=== PATIENT | female | born 1950 | race Caucasian/White ===

== ENCOUNTER 2016-09-03 10:17 | Day surgery (SDC) | payer MEDICARE, OTHER ==
[~2016-09-03 10:17] MED LIST: PHENYLEPHRINE 2.5% OPHTH 2 ML DROPS ONE
[2016-09-03] MEDS ORDERED: KETOROLAC 0.45% OPHTH DROPS OPTH ONE (10:25)
[2016-09-03] MEDS ORDERED: PHENYLEPHRINE 2.5% OPHTH 2 ML DROPS OPTH ONE (10:25)
[2016-09-03] MEDS ORDERED: PROPARACAINE 0.5% OPHTH DROPS 15 ML OPTH ONE ×2 (10:25→11:22)
[2016-09-03] MEDS ORDERED: CYCLOPENTOLATE 1% OPHTH DROPS 2 ML OPTH ONE (10:25)
[2016-09-03] MEDS ORDERED: LACTATED RINGERS 1,000 ML IV ONE (10:38)
[2016-09-03] MEDS ORDERED: TIMOLOL 0.5% OPHTH DROPS OPTH ONE (11:22)
[2016-09-03] MEDS ORDERED: CHONDR SULF/HYALURONATE SYRINGE IO ONE (11:22)
[2016-09-03] MEDS ORDERED: TRIAMCIN/MOXIFLOX/VANCO 1 ML VIAL IO ONE ×2 (11:22)
[2016-09-03] MEDS ORDERED: BRIMONIDINE 0.2% OPHTH DROPS 5 ML OPTH ONE (11:22)
[2016-09-03] MEDS ORDERED: EPINEPHrine 1 MG/ML AMP IVP ONE (11:22)
[2016-09-03] MEDS ORDERED: BSS/LIDOCAINE/EPINEPHRINE 1 ML SYRINGE IO ONE ×2 (11:22)
[2016-09-03 12:01] VITALS: BP 157/78
--- NOTE | 2016-09-03 14:41 | OPERATIVE REPORT ---
DATE OF SURGERY: 09/03/2016 00:00:00 PREOPERATIVE DIAGNOSIS: Visually significant cataract, right eye. This is her first cataract surgery. POSTOPERATIVE DIAGNOSIS: Visually significant cataract, right eye. This is her first cataract surgery. NAME OF PROCEDURE: Phacoemulsification with posterior chamber intraocular lens implant, right eye with laser assist. SURGEON: Du Tucker MD. ANESTHESIA: Monitored anesthesia care. COMPLICATIONS: None. OPERATIVE INDICATIONS: This is a 65-year-old woman with progressive vision loss in the right eye due to 2+ nuclear sclerotic, 1-2+ cortical, and a central irregularity cataract. Best corrected visual acuity was 20/40 with glare to 20/ 400 in the right eye. Indications for surgery were overall decrease in vision, difficulty seeing words on a computer screen, difficulty reading, difficulty seeing words or close captions or game score on TV, difficulty seeing street signs, difficulty driving in low light or at night, difficulty driving at night because of headlights from other vehicles and/or street light, difficulty with glare or bright lights in any situation. She was consented at length concerning the risks and benefits of cataract surgery, after which she expressed a desire to proceed with surgery. OPERATIVE PROCEDURE: The patient was taken into OR #2 and placed under monitored anesthesia care. A surgical time-out was conducted confirming the correct patient, correct procedure and correct surgical site. She was placed in the LenSx laser and her eye docked to the laser interface. The laser performed the capsulotomy, lens softening, phaco wounds, and arcuate keratotomy incisions. She was then moved to the operating microscope, given topical anesthesia, and then prepped and draped in the usual sterile fashion. The eye was entered at the 12 and 9 o'clock positions. Intracameral Shugarcaine was injected into the anterior chamber, followed by Viscoat. Capsulorrhexis flap created by the LenSx laser was removed from the anterior chamber. Nucleus was hydrodissected and phacoemulsified. Cortex was evacuated using automated infusion and aspiration (I/A). Provisc was injected in the capsular bag and a 21.0 diopter intraocular lens was inserted into the bag. Approximately 0.8 mL of a mixture of triamcinolone, moxifloxacin, and vancomycin was injected subconjunctivally in the superior quadrant for infection and inflammation prophylaxis. I/A was used to evacuate the viscoelastic materials. The eye was inflated to a physiologic pressure using balanced salt solution and found to be watertight. The patient was taken from the operating room in good condition and given postoperative instructions. JOB #: [id number] EXT JOB #:[id number] TRES
== END 2016-09-03 10:18 | disposition home or self-care (01) ==
LOC: SDS 10:17
PROVIDERS: ATTEND Ophthalmology
PROC: 08RJ3JZ Replacement of Right Lens with Synthetic Substitute, Percutaneous Approach (ICD-10-PCS; principal; 2016-09-03 11:30)
DX: H25.811 Combined forms of age-related cataract, right eye (principal)
CPT/HCPCS: 66984; A9270; J7120; V2632

== ENCOUNTER 2016-09-10 10:09 | Day surgery (SDC) | payer MEDICARE, OTHER ==
[2016-09-10] MEDS ORDERED: SODIUM CHLORIDE 0.9% 500 ML IV ONE (10:41)
[2016-09-10] MEDS ORDERED: TRIAMCINOLONE PF 40 MG/ML VIAL IO ONE ×2 (11:01)
[2016-09-10] MEDS ORDERED: ACETYLCHOLINE 20 MG/2 ML KIT IO ONE (11:01)
[2016-09-10] MEDS ORDERED: NEOMYCIN/BACITRA/POLYMYX/HC OINT 15 GM TUBE TOP ONE (11:01)
[2016-09-10] MEDS ORDERED: BSS/LIDOCAINE/EPINEPHRINE 1 ML SYRINGE IO ONE ×2 (11:01)
[2016-09-10] MEDS ORDERED: CHONDR SULF/HYALURONATE SYRINGE IO ONE (11:01)
[2016-09-10] MEDS ORDERED: TRIAMCIN/MOXIFLOX/VANCO 1 ML VIAL IO ONE ×2 (11:01)
[2016-09-10] MEDS ORDERED: PROPARACAINE 0.5% OPHTH DROPS 15 ML OPTH ONE (11:01)
[2016-09-10] MEDS ORDERED: BRIMONIDINE 0.2% OPHTH DROPS 5 ML OPTH ONE (11:01)
[2016-09-10] MEDS ORDERED: TIMOLOL 0.5% OPHTH DROPS OPTH ONE (11:01)
[2016-09-10] MEDS ORDERED: EPINEPHrine 1 MG/ML AMP IVP ONE (11:01)
[2016-09-10] MEDS ORDERED: NEOMYCIN/POLYMYX/DEXAMETH OPHTH OINT ONE (11:03)
[2016-09-10] MEDS ORDERED: PROPOFOL 200 MG/20 ML VIAL IVP ONE (11:08)
[2016-09-10] MEDS ORDERED: LIDOCAINE-MPF 2% 5 ML VIAL IM ONE (11:08)
[2016-09-10] MEDS ORDERED: LACTATED RINGERS 1,000 ML IV ONE (11:33)
[2016-09-10 12:19] VITALS: BP 174/87
--- NOTE | 2016-09-10 12:19 | OPERATIVE REPORT ---
DATE OF SURGERY: 09/10/2016 00:00:00 PREOPERATIVE DIAGNOSIS: Dislocated intraocular lens implanted the week previous on 03 Sep 2016. POSTOPERATIVE DIAGNOSIS: Dislocated intraocular lens implanted the week previous on 03 Sep 2016. COMMENT: The day after initial cataract surgery, on postoperative day 1, the IOL that had been implanted without incident was found to be displaced. Upon dilation it was evident that the capsular bag had disintegrated and so a plan to remove the unstable IOL and replace it with an anterior chamber IOL was scheduled. NAME OF PROCEDURE: Intraocular lens exchange with explantation of the posterior chamber intraocular lens and implantation of an anterior chamber intraocular lens in the right eye. SURGEON: Du Tucker MD ANESTHESIA: Monitored anesthesia care. COMPLICATIONS: None. OPERATIVE INDICATIONS: This is a 65-year-old woman who, as previously stated, had a posterior chamber intraocular lens implanted in an uneventful surgery on 03 Sep 2016, but upon 1 day postoperatively it was obvious that the lens was displaced inferiorly. Her best corrected visual acuity at that time was 20/40; however, she saw lines in her vision. She was consented at length concerning the risks and benefits of IOL exchange and she expressed a desire to proceed with surgery. OPERATIVE PROCEDURE: The patient was taken into OR #2 and placed under monitored anesthesia care. A surgical time-out was conducted confirming correct patient, correct procedure and correct surgical site. She was given topical anesthesia and then prepped and draped in the usual sterile fashion. The eye was entered through the original 12 and 9 o'clock wounds from the week's previous surgery. Intracameral Shugarcaine was injected into the anterior chamber followed by copious amounts of Viscoat. Then micrograspers were used to enter through the 12-o'clock position to grasp the IOL through the undilated pupil and pull it up into the anterior chamber. Once in the anterior chamber, it was again grasped with the MST micrograspers and MST microscissors were used to cut the IOL in half. Each half was removed through the original phaco wound. Triessence was then injected into the chamber to stain the vitreous that was prolapsing through the pupil. An anterior wet vitrectomy using the vitrector was conducted through the semi-dilated pupil (dilated with the Shugarcaine). Once the vitreous was removed from the anterior chamber, more Viscoat was injected into the anterior chamber. The wound was widened to 6 mm. A Sheetz glide was placed through the wound and into the nasal angle, over which the [id number] anterior chamber lens was inserted into the anterior chamber and the foot plates placed into the nasal and temporal angle. The vitrector was used to make a nasal peripheral iridotomy. Approximately 0.8 mL of a mixture of triamcinolone, moxifloxacin, and vancomycin was injected subconjunctivally in the superior quadrant for infection and inflammation prophylaxis. The vitrector unit was used on -A-Cut to remove the viscoelastic from the anterior chamber. Two 10-0 nylon sutures were placed across the 6 mm wound. The eye was filled with balanced salt solution and found to be watertight. The patient was taken from the operating room in good condition and given postoperative instructions. JOB #: [id number] EXT JOB #:[id number]
== END 2016-09-10 10:10 | disposition home or self-care (01) ==
LOC: SDS 10:09
PROVIDERS: ATTEND Ophthalmology
PROC: 08RJ3JZ Replacement of Right Lens with Synthetic Substitute, Percutaneous Approach (ICD-10-PCS; principal; 2016-09-10 11:30)
DX: T85.898A Other specified complication of other internal prosthetic devices, implants and grafts, initial encounter (principal); Y83.8 Other surgical procedures as the cause of abnormal reaction of the patient, or of later complication, without mention of misadventure at the time of the procedure; E78.00 Pure hypercholesterolemia, unspecified; K21.9 Gastro-esophageal reflux disease without esophagitis; M19.90 Unspecified osteoarthritis, unspecified site
CPT/HCPCS: 66986; A9270; J3300; J7120